=== PATIENT | female | born 1985 | race Asian ===

== ENCOUNTER 2017-01-07 19:39 | Emergency (ER) | payer MEDICARE, OTHER ==
[~2017-01-07] VITALS: Ht 147.3 cm; Wt 108.0 kg
[~2017-01-07 19:39] MED LIST: DIVA500T35 PO; RISP3 PO
[2017-01-07 20:27] LABS: BASOPHILS % (AUTO) 0.4 % (0.0-2.0); EOSINOPHILS % (AUTO) 0 % (1.0-6.0); HEMATOCRIT 41.8 % (36-46); HEMOGLOBIN 14.5 g/dL (12.0-16.0); LYMPHOCYTES # (AUTO) 2.5 K/uL (1.0-4.8); LYMPHOCYTES % (AUTO) 18.1 % (22.0-44.0); MEAN CORPUSCULAR HGB CONC 34.7 G/dL (31.0-37.0); MEAN CORPUSCULAR VOLUME 98 fL (80-100); MONOCYTES # (AUTO) 0.8 K/uL (0.1-1.0); MONOCYTES % (AUTO) 5.9 % (2.0-9.0); NEUTROPHILS # (AUTO) 10.3 K/uL (1.8-7.7); NEUTROPHILS % (AUTO) 75.6 % (40.0-70.0); PLATELET COUNT (AUTO) 401 K/uL (150-450); RED BLOOD CELL COUNT(AUTO) 4.26 MIL/uL (4.00-5.20); RED CELL DISTRIBUTION WIDTH 13.7 % (11.5-14.5)
[2017-01-07 20:30] LABS: ANION GAP 12 mmol/L (8-16); CALCIUM, TOTAL 9.3 mg/dL (8.8-10.5); CARBON DIOXIDE 24 mmol/L (22-29); CHLORIDE 99 mmol/L (98-107); GLOMERULAR FILTR. RATE CALC > 60 mL/min (>60); GLUCOSE,RANDOM 150 mg/dL (70-110); SODIUM SERUM 135 mmol/L (136-145); UREA NITROGEN, BLOOD 9 mg/dL (7-18)
[2017-01-07 20:37] LABS: ALANINE AMINOTRANSFERASE 36 U/L (12-78); ALBUMIN 3.7 g/dL (3.4-5.0); ALKALINE PHOSPHATASE 51 U/L (46-116); ASPARTATE AMINOTRANSFERASE 23 U/L (15-37); BILIRUBIN,TOTAL 0.4 mg/dL (0.1-1.0); TOTAL PROTEIN, SERUM 8.8 g/dL (6.4-8.2)
[2017-01-07] MEDS ORDERED: LORazepam 2 MG TABLET PO ONE (21:30)
[2017-01-07 22:36] VITALS: BP 115/75
[2017-01-08] MEDS ORDERED: METF500T4 PO (17:02)
[2017-01-08] MEDS ORDERED: LISI-660 PO (17:02)
== END 2017-01-07 22:40 | disposition home or self-care (01) ==
LOC: EMS 19:41
DX: F29 Unspecified psychosis not due to a substance or known physiological condition (principal)
CPT/HCPCS: 36415; 80053; 84703; 85025; 99284; G0480

== ENCOUNTER 2017-01-08 16:50 | Inpatient (IN) | payer MEDICARE, MEDICAID ==
[~2017-01-08] VITALS: Ht 144.8 cm; Wt 101.6 kg
[2017-01-08] MEDS ORDERED: METF500T4 PO (17:02)
[2017-01-08] MEDS ORDERED: LISI-660 PO (17:02)
[2017-01-08 17:07] LABS: GLUCOSE,POINT OF CARE 118 MG/DL (70-110)
[2017-01-08 18:39] LABS: ANION GAP 8 mmol/L (8-16); CALCIUM, TOTAL 8.9 mg/dL (8.8-10.5); CARBON DIOXIDE 25 mmol/L (22-29); CHLORIDE 99 mmol/L (98-107); CREATININE 0.75 mg/dL (0.60-1.30); GLOMERULAR FILTR. RATE CALC > 60 mL/min (>60); POTASSIUM 3.8 mmol/L (3.5-5.1); SODIUM SERUM 132 mmol/L (136-145); UREA NITROGEN, BLOOD 7 mg/dL (7-18)
[2017-01-08 18:41] LABS: BASOPHILS % (AUTO) 0.4 % (0.0-2.0); EOSINOPHILS % (AUTO) 0.2 % (1.0-6.0); HEMATOCRIT 39.9 % (36-46); HEMOGLOBIN 13.7 g/dL (12.0-16.0); LYMPHOCYTES # (AUTO) 2.7 K/uL (1.0-4.8); LYMPHOCYTES % (AUTO) 23.4 % (22.0-44.0); MEAN CORPUSCULAR HEMOGLOBIN 33.6 pg (26.0-34.0); MEAN CORPUSCULAR HGB CONC 34.4 G/dL (31.0-37.0); MEAN CORPUSCULAR VOLUME 98 fL (80-100); MONOCYTES # (AUTO) 0.7 K/uL (0.1-1.0); MONOCYTES % (AUTO) 5.9 % (2.0-9.0); NEUTROPHILS # (AUTO) 8.2 K/uL (1.8-7.7); NEUTROPHILS % (AUTO) 70.1 % (40.0-70.0); PLATELET COUNT (AUTO) 344 K/uL (150-450); RED BLOOD CELL COUNT(AUTO) 4.08 MIL/uL (4.00-5.20); RED CELL DISTRIBUTION WIDTH 13.6 % (11.5-14.5); WHITE BLOOD COUNT (AUTO) 11.7 K/uL (4.5-11.0)
[2017-01-08 18:45] LABS: ALANINE AMINOTRANSFERASE 34 U/L (12-78); ALBUMIN 3.5 g/dL (3.4-5.0); ASPARTATE AMINOTRANSFERASE 24 U/L (15-37); BILIRUBIN,TOTAL 0.4 mg/dL (0.1-1.0); TOTAL PROTEIN, SERUM 7.6 g/dL (6.4-8.2)
[2017-01-09] MEDS ORDERED: INFLUENZA VIRUS VACCINE QVS 2017-18 (3YR+)/PF 60 MCG/0.5 ML SYRINGE IM ONE (02:15)
[2017-01-09 05:29] VITALS: BP 126/67
[2017-01-09 08:15] VITALS: BP 121/70
[2017-01-09] MEDS: DIVALPROEX SODIUM 500 MG ER TABLET PO SCH ×2 (08:59→20:40)
[2017-01-09] MEDS: RisperiDONE 2 MG TABLET PO SCH ×2 (09:02→20:40)
[2017-01-09 16:09] VITALS: BP 107/70
[2017-01-09] MEDS ORDERED: IBUPROFEN 400 MG TABLET PO PRN (20:00)
[2017-01-09] MEDS ORDERED: ACETAMINOPHEN 325 MG TABLET PO PRN (20:00)
[2017-01-10 06:54] VITALS: BP 120/65
[2017-01-10] MEDS: MetFORMIN HCL 500 MG TABLET PO SCH ×2 (07:07→16:50)
[2017-01-10 07:27] LABS: GLUCOSE,POINT OF CARE 132 MG/DL (70-110)
[2017-01-10] MEDS: RisperiDONE 2 MG TABLET PO SCH ×2 (08:03→20:04)
[2017-01-10] MEDS: LISINOPRIL 10 MG TABLET PO SCH (08:03)
[2017-01-10] MEDS: DIVALPROEX SODIUM 500 MG ER TABLET PO SCH ×2 (08:03→20:04)
[2017-01-10 08:05] LABS: HEMOGLOBIN A1C 6.1 % (4.5-6.2)
[2017-01-10] MEDS: BACITRACIN 28.4 GM OINTMENT TP SCH ×2 (08:13→16:50)
[2017-01-10 08:50] VITALS: BP 124/88
[2017-01-10 09:29] LABS: CHOL/HDL RATIO 3.3 (3.9-5.7); THYROID STIMULATING HORMONE 3.51 uIU/mL (0.36-3.74)
[2017-01-10 16:00] VITALS: BP 124/71
[2017-01-11 00:22] VITALS: BP 136/82
[2017-01-11] MEDS: MetFORMIN HCL 500 MG TABLET PO SCH ×2 (06:47→16:24)
[2017-01-11 07:33] LABS: ANION GAP 10 mmol/L (8-16); CALCIUM, TOTAL 8.8 mg/dL (8.8-10.5); CARBON DIOXIDE 27 mmol/L (22-29); CHLORIDE 100 mmol/L (98-107); CREATININE 0.62 mg/dL (0.60-1.30); GLOMERULAR FILTR. RATE CALC > 60 mL/min (>60); POTASSIUM 4.3 mmol/L (3.5-5.1); SODIUM SERUM 137 mmol/L (136-145); UREA NITROGEN, BLOOD 9 mg/dL (7-18)
[2017-01-11] MEDS: RisperiDONE 2 MG TABLET PO SCH ×2 (08:30→20:01)
[2017-01-11] MEDS: LISINOPRIL 10 MG TABLET PO SCH (08:30)
[2017-01-11] MEDS: DIVALPROEX SODIUM 500 MG ER TABLET PO SCH ×2 (08:30→20:01)
[2017-01-11] MEDS: BACITRACIN 28.4 GM OINTMENT TP SCH ×2 (08:30→16:24)
[2017-01-11 09:28] VITALS: BP 122/80
[2017-01-11] MEDS ORDERED: ERYTHROMYCIN 0.5% 3.5 GM TUBE OPHTHALMIC OINTMENT TP SCH (09:30)
[2017-01-11 19:17] VITALS: BP 128/67
[2017-01-11] MEDS: LORazepam 2 MG TABLET PO PRN (19:53)
[2017-01-11] MEDS: HALOPERIDOL 5 MG TABLET PO PRN (21:06)
[2017-01-12] MEDS: MetFORMIN HCL 500 MG TABLET PO SCH ×2 (07:05→17:40)
[2017-01-12 08:46] VITALS: BP 159/76
[2017-01-12] MEDS: DIVALPROEX SODIUM 500 MG ER TABLET PO SCH ×2 (08:54→20:39)
[2017-01-12] MEDS: ERYTHROMYCIN 0.5% 3.5 GM TUBE OPHTHALMIC OINTMENT OS SCH (08:54)
[2017-01-12] MEDS: LISINOPRIL 10 MG TABLET PO SCH (08:54)
[2017-01-12] MEDS: RisperiDONE 2 MG TABLET PO SCH ×2 (08:54→20:39)
[2017-01-12] MEDS: BACITRACIN 28.4 GM OINTMENT TP SCH ×2 (08:54→17:07)
[2017-01-12] MEDS ORDERED: ERYTHROMYCIN 0.5% 3.5 GM TUBE OPHTHALMIC OINTMENT OD SCH (09:00)
[2017-01-12 16:22] VITALS: BP 121/62
[2017-01-12] MEDS: HALOPERIDOL 5 MG TABLET PO PRN (17:08)
[2017-01-12] MEDS: LORazepam 2 MG TABLET PO PRN (17:08)
[2017-01-13] MEDS: MetFORMIN HCL 500 MG TABLET PO SCH ×2 (06:41→16:50)
[2017-01-13 08:19] VITALS: BP_SYST 112; BP_SYST 129; BP_DIAS 71; BP_DIAS 89
[2017-01-13] MEDS: ERYTHROMYCIN 0.5% 3.5 GM TUBE OPHTHALMIC OINTMENT OS SCH (08:38)
[2017-01-13] MEDS: DIVALPROEX SODIUM 500 MG ER TABLET PO SCH ×2 (08:38→21:26)
[2017-01-13] MEDS: BACITRACIN 28.4 GM OINTMENT TP SCH ×2 (08:38→16:50)
[2017-01-13] MEDS: RisperiDONE 2 MG TABLET PO SCH ×2 (08:38→21:26)
[2017-01-13] MEDS: LISINOPRIL 10 MG TABLET PO SCH (08:38)
[2017-01-13 16:29] VITALS: BP 122/70
[2017-01-13] MEDS: LORazepam 2 MG TABLET PO PRN (16:50)
[2017-01-13] MEDS: HALOPERIDOL 5 MG TABLET PO PRN (16:50)
[2017-01-14 06:18] VITALS: BP 120/61
[2017-01-14] MEDS: MetFORMIN HCL 500 MG TABLET PO SCH ×2 (06:31→16:39)
[2017-01-14] MEDS: DIVALPROEX SODIUM 500 MG ER TABLET PO SCH ×2 (08:07→20:22)
[2017-01-14] MEDS: RisperiDONE 2 MG TABLET PO SCH ×2 (08:07→20:22)
[2017-01-14] MEDS: LISINOPRIL 10 MG TABLET PO SCH (08:07)
[2017-01-14] MEDS: ERYTHROMYCIN 0.5% 3.5 GM TUBE OPHTHALMIC OINTMENT OS SCH ×2 (08:16→09:22)
[2017-01-14 08:18] VITALS: BP 116/63
[2017-01-14] MEDS: BACITRACIN 28.4 GM OINTMENT TP SCH ×2 (09:21→16:21)
[2017-01-14] MEDS: LORazepam 2 MG TABLET PO PRN ×2 (16:21→20:22)
[2017-01-14 16:27] VITALS: BP 113/68
[2017-01-14] MEDS: HALOPERIDOL 5 MG TABLET PO PRN (16:39)
[2017-01-15 06:57] VITALS: BP 110/72
[2017-01-15] MEDS: MetFORMIN HCL 500 MG TABLET PO SCH ×2 (07:06→16:19)
[2017-01-15] MEDS: BACITRACIN 28.4 GM OINTMENT TP SCH ×2 (08:12→16:19)
[2017-01-15] MEDS: DIVALPROEX SODIUM 500 MG ER TABLET PO SCH ×2 (08:12→20:12)
[2017-01-15] MEDS: RisperiDONE 2 MG TABLET PO SCH ×2 (08:12→20:12)
[2017-01-15] MEDS: LISINOPRIL 10 MG TABLET PO SCH (08:13)
[2017-01-15] MEDS: ERYTHROMYCIN 0.5% 3.5 GM TUBE OPHTHALMIC OINTMENT OS SCH (08:16)
[2017-01-15 16:15] VITALS: BP 110/66
[2017-01-16 05:59] VITALS: BP 115/72
[2017-01-16] MEDS: MetFORMIN HCL 500 MG TABLET PO SCH ×2 (06:37→16:21)
[2017-01-16] MEDS: RisperiDONE 2 MG TABLET PO SCH ×2 (08:15→20:09)
[2017-01-16] MEDS: DIVALPROEX SODIUM 500 MG ER TABLET PO SCH ×2 (08:15→20:09)
[2017-01-16] MEDS: LISINOPRIL 10 MG TABLET PO SCH (08:16)
[2017-01-16] MEDS: BACITRACIN 28.4 GM OINTMENT TP SCH ×2 (08:21→16:21)
[2017-01-16] MEDS: ERYTHROMYCIN 0.5% 3.5 GM TUBE OPHTHALMIC OINTMENT OS SCH (08:21)
[2017-01-16 09:09] VITALS: BP 137/75
[2017-01-16 16:07] VITALS: BP 100/61
[2017-01-17 00:12] VITALS: BP 140/76
[2017-01-17] MEDS: MetFORMIN HCL 500 MG TABLET PO SCH ×2 (06:40→16:34)
[2017-01-17 08:32] VITALS: BP 134/84
[2017-01-17] MEDS: RisperiDONE 2 MG TABLET PO SCH ×2 (08:43→20:38)
[2017-01-17] MEDS: DIVALPROEX SODIUM 500 MG ER TABLET PO SCH ×2 (08:43→20:38)
[2017-01-17] MEDS: LISINOPRIL 10 MG TABLET PO SCH (08:43)
[2017-01-17] MEDS: BACITRACIN 28.4 GM OINTMENT TP SCH ×2 (08:44→16:34)
[2017-01-17] MEDS: ERYTHROMYCIN 0.5% 3.5 GM TUBE OPHTHALMIC OINTMENT OS SCH (08:44)
[2017-01-17 16:13] VITALS: BP 101/77
[2017-01-18] MEDS: MetFORMIN HCL 500 MG TABLET PO SCH ×2 (06:33→16:58)
[2017-01-18 07:02] VITALS: BP 126/70
[2017-01-18 08:27] VITALS: BP 125/81
[2017-01-18] MEDS: RisperiDONE 2 MG TABLET PO SCH ×2 (08:28→20:49)
[2017-01-18] MEDS: DIVALPROEX SODIUM 500 MG ER TABLET PO SCH ×2 (08:28→20:49)
[2017-01-18] MEDS: BACITRACIN 28.4 GM OINTMENT TP SCH ×2 (08:28→16:58)
[2017-01-18] MEDS: LISINOPRIL 10 MG TABLET PO SCH (08:28)
[2017-01-18] MEDS: ERYTHROMYCIN 0.5% 3.5 GM TUBE OPHTHALMIC OINTMENT OS SCH (08:31)
[2017-01-18 16:07] VITALS: BP 106/61
[2017-01-19 03:46] VITALS: BP 122/74
[2017-01-19] MEDS: MetFORMIN HCL 500 MG TABLET PO SCH ×2 (06:39→16:13)
[2017-01-19 07:50] LABS: BASOPHILS % (AUTO) 0.3 % (0.0-2.0); EOSINOPHILS % (AUTO) 0.5 % (1.0-6.0); HEMATOCRIT 38.3 % (36-46); LYMPHOCYTES # (AUTO) 1.9 K/uL (1.0-4.8); MEAN CORPUSCULAR HEMOGLOBIN 34.1 pg (26.0-34.0); MEAN CORPUSCULAR VOLUME 100 fL (80-100); MONOCYTES # (AUTO) 0.6 K/uL (0.1-1.0); MONOCYTES % (AUTO) 7.2 % (2.0-9.0); NEUTROPHILS # (AUTO) 5.2 K/uL (1.8-7.7); PLATELET COUNT (AUTO) 325 K/uL (150-450); RED BLOOD CELL COUNT(AUTO) 3.82 MIL/uL (4.00-5.20); RED CELL DISTRIBUTION WIDTH 14.2 % (11.5-14.5); WHITE BLOOD COUNT (AUTO) 7.8 K/uL (4.5-11.0)
[2017-01-19 07:57] LABS: RBC MORPHOLOGY COMMENT ABNORMAL RBC MORPH
[2017-01-19 08:06] VITALS: BP 109/54
[2017-01-19] MEDS: ERYTHROMYCIN 0.5% 3.5 GM TUBE OPHTHALMIC OINTMENT OS SCH (09:00)
[2017-01-19] MEDS: RisperiDONE 2 MG TABLET PO SCH ×2 (09:10→20:08)
[2017-01-19] MEDS: LISINOPRIL 10 MG TABLET PO SCH (09:10)
[2017-01-19] MEDS: BACITRACIN 28.4 GM OINTMENT TP SCH ×2 (09:10→16:13)
[2017-01-19] MEDS: DIVALPROEX SODIUM 500 MG ER TABLET PO SCH ×2 (09:10→20:08)
[2017-01-19 16:11] VITALS: BP 129/78
[2017-01-20 05:02] VITALS: BP 126/74
[2017-01-20] MEDS: MetFORMIN HCL 500 MG TABLET PO SCH ×2 (06:22→17:02)
[2017-01-20 08:30] VITALS: BP 108/61
[2017-01-20] MEDS: ERYTHROMYCIN 0.5% 3.5 GM TUBE OPHTHALMIC OINTMENT OS SCH (09:00)
[2017-01-20] MEDS: LISINOPRIL 10 MG TABLET PO SCH (09:27)
[2017-01-20] MEDS: DIVALPROEX SODIUM 500 MG ER TABLET PO SCH ×2 (09:27→20:11)
[2017-01-20] MEDS: RisperiDONE 2 MG TABLET PO SCH ×2 (09:27→20:11)
[2017-01-20 16:09] VITALS: BP 121/69
[2017-01-21 03:07] VITALS: BP 117/63
[2017-01-21] MEDS: LORazepam 2 MG TABLET PO PRN (03:24)
[2017-01-21] MEDS: MetFORMIN HCL 500 MG TABLET PO SCH ×2 (07:06→16:48)
[2017-01-21] MEDS: LISINOPRIL 10 MG TABLET PO SCH (08:12)
[2017-01-21] MEDS: DIVALPROEX SODIUM 500 MG ER TABLET PO SCH ×2 (08:12→20:40)
[2017-01-21] MEDS: ERYTHROMYCIN 0.5% 3.5 GM TUBE OPHTHALMIC OINTMENT OS SCH (08:12)
[2017-01-21] MEDS: RisperiDONE 2 MG TABLET PO SCH ×2 (08:12→20:40)
[2017-01-21 08:40] VITALS: BP 129/62
[2017-01-21 16:36] VITALS: BP 113/64
[2017-01-22 00:55] VITALS: BP 117/68
[2017-01-22] MEDS: MetFORMIN HCL 500 MG TABLET PO SCH (06:56)
[2017-01-22] MEDS: ERYTHROMYCIN 0.5% 3.5 GM TUBE OPHTHALMIC OINTMENT OS SCH (08:40)
[2017-01-22] MEDS: RisperiDONE 2 MG TABLET PO SCH (08:40)
[2017-01-22] MEDS: DIVALPROEX SODIUM 500 MG ER TABLET PO SCH (08:40)
[2017-01-22] MEDS: LISINOPRIL 10 MG TABLET PO SCH (08:40)
[2017-01-22 08:49] VITALS: BP 138/76
[2017-01-22] MEDS ORDERED: DIVA500T52 PO (10:03)
[2017-01-22] MEDS ORDERED: RISP2 PO (10:03)
== END 2017-01-22 11:00 | disposition home or self-care (01) | DRG 885 ==
LOC: EMS 16:52 → B3A 23:57
PROVIDERS: ADMIT Psychiatry & Neurology Child & Adolescent Psychiatry; ATTEND Psychiatry & Neurology Child & Adolescent Psychiatry
PROC: 3E0234Z Introduction of Serum, Toxoid and Vaccine into Muscle, Percutaneous Approach (ICD-10-PCS; principal; 2017-01-09)
DX: F25.1 Schizoaffective disorder, depressive type (principal); F79 Unspecified intellectual disabilities; E87.1 Hypo-osmolality and hyponatremia; E11.9 Type 2 diabetes mellitus without complications; D72.829 Elevated white blood cell count, unspecified; E66.9 Obesity, unspecified; F42.9 Obsessive-compulsive disorder, unspecified; H10.9 Unspecified conjunctivitis; I10 Essential (primary) hypertension; Q90.9 Down syndrome, unspecified; Z79.899 Other long term (current) drug therapy; Z82.49 Family history of ischemic heart disease and other diseases of the circulatory system; Z83.3 Family history of diabetes mellitus; Z91.14 Patient's other noncompliance with medication regimen; Z23 Encounter for immunization
CPT/HCPCS: 82962; 83036; 84443; 90471; 99285; G0480

== ENCOUNTER 2017-02-02 17:52 | Inpatient (IN) | payer MEDICARE, MEDICAID ==
[~2017-02-02] VITALS: Ht 142.2 cm; Wt 110.0 kg
[~2017-02-02 17:52] MED LIST changes: -DIVA500T35 PO; +DIVA500T52 PO; +LISI-660 PO; +METF500T4 PO; +RISP2 PO; -RISP3 PO
[2017-02-02 18:07] LABS: GLUCOSE,POINT OF CARE 98 MG/DL (70-110)
[2017-02-02 19:32] LABS: BASOPHILS # (AUTO) 0.04 K/uL (0.00-0.20); BASOPHILS % (AUTO) 0.4 % (0.0-2.0); EOSINOPHILS # (AUTO) 0.05 K/uL (0.00-0.70); HEMATOCRIT 38.2 % (36-46); HEMOGLOBIN 12.6 g/dL (12.0-16.0); LYMPHOCYTES # (AUTO) 2.7 K/uL (1.0-4.8); LYMPHOCYTES % (AUTO) 26.7 % (22.0-44.0); MEAN CORPUSCULAR HEMOGLOBIN 33.2 pg (26.0-34.0); MEAN CORPUSCULAR HGB CONC 32.9 G/dL (31.0-37.0); MEAN CORPUSCULAR VOLUME 101 fL (80-100); MONOCYTES # (AUTO) 0.7 K/uL (0.1-1.0); NEUTROPHILS # (AUTO) 6.7 K/uL (1.8-7.7); NEUTROPHILS % (AUTO) 65.4 % (40.0-70.0); PLATELET COUNT (AUTO) 337 K/uL (150-450); RED BLOOD CELL COUNT(AUTO) 3.79 MIL/uL (4.00-5.20); RED CELL DISTRIBUTION WIDTH 14.7 % (11.5-14.5)
[2017-02-02 19:42] LABS: ANION GAP 7 mmol/L (8-16); CALCIUM, TOTAL 8.9 mg/dL (8.8-10.5); CARBON DIOXIDE 30 mmol/L (22-29); CHLORIDE 102 mmol/L (98-107); CREATININE 0.75 mg/dL (0.60-1.30); GLOMERULAR FILTR. RATE CALC > 60 mL/min (>60); GLUCOSE,RANDOM 110 mg/dL (70-110); POTASSIUM 4.1 mmol/L (3.5-5.1); SODIUM SERUM 139 mmol/L (136-145); UREA NITROGEN, BLOOD 8 mg/dL (7-18)
[2017-02-02 19:47] LABS: ALANINE AMINOTRANSFERASE 25 U/L (12-78); ALBUMIN 3.1 g/dL (3.4-5.0); ALKALINE PHOSPHATASE 55 U/L (46-116); ASPARTATE AMINOTRANSFERASE 16 U/L (15-37); BILIRUBIN,TOTAL 0.2 mg/dL (0.1-1.0); TOTAL PROTEIN, SERUM 7.5 g/dL (6.4-8.2); VALPROIC ACID 33 mcg/mL (50-100)
[2017-02-02] MEDS ORDERED: LISI-661 PO (20:20)
[2017-02-02] MEDS ORDERED: RisperiDONE 1 MG TABLET PO ONE (20:30)
[2017-02-02] MEDS ORDERED: DIVALPROEX SODIUM 250 MG DR TABLET PO ONE (20:30)
[2017-02-02 21:27] LABS: CHOL/HDL RATIO 3.4 (3.9-5.7); CHOLESTEROL 141 mg/dL (131-200); HDL CHOLESTEROL 42 mg/dL (40-60); LDL CHOL (CALC.) 82 mg/dL (0-130); THYROID STIMULATING HORMONE 5.26 uIU/mL (0.36-3.74); TRIGLYCERIDES 86 mg/dL (15-150)
[2017-02-02 21:42] LABS: GLUCOSE,POINT OF CARE 115 MG/DL (70-110)
[2017-02-03 02:12] VITALS: BP 131/114
[2017-02-03] MEDS ORDERED: PNEUMOCOCCAL VACCINE POLYVALENT 0.5 ML VIAL [PPSV23] IM ONE (04:15)
[2017-02-03] MEDS ORDERED: -PHARMACY VACCINE NOTE- MISC ONE (04:15)
[2017-02-03 06:22] LABS: GLUCOMETER DEV NAME(LOC) 3EI B; GLUCOSE,POINT OF CARE 94 MG/DL (70-110)
[2017-02-03 08:52] VITALS: BP 146/81
[2017-02-03] MEDS: DIVALPROEX SODIUM 500 MG ER TABLET PO SCH ×2 (13:12→20:43)
[2017-02-03] MEDS: RisperiDONE 2 MG TABLET PO SCH ×2 (13:12→20:43)
[2017-02-03] MEDS ORDERED: ACETAMINOPHEN 325 MG TABLET PO PRN (16:30)
[2017-02-03] MEDS ORDERED: IBUPROFEN 400 MG TABLET PO PRN (16:30)
[2017-02-03 16:39] VITALS: BP 119/70
[2017-02-03] MEDS: MetFORMIN HCL 500 MG TABLET PO SCH (17:36)
[2017-02-03 18:00] LABS: FREE T4 (FREE THYROXINE) 0.99 ng/dL (0.76-1.46)
[2017-02-04 06:43] VITALS: BP 111/74
[2017-02-04] MEDS: MetFORMIN HCL 500 MG TABLET PO SCH ×2 (06:57→17:30)
[2017-02-04 08:38] VITALS: BP 110/72
[2017-02-04] MEDS: RisperiDONE 2 MG TABLET PO SCH ×2 (09:51→20:15)
[2017-02-04] MEDS: DIVALPROEX SODIUM 500 MG ER TABLET PO SCH ×2 (09:51→20:15)
[2017-02-04] MEDS: LISINOPRIL 10 MG TABLET PO SCH (09:51)
[2017-02-04 16:41] VITALS: BP 98/53
[2017-02-04 20:13] VITALS: BP 108/64
[2017-02-05 00:05] VITALS: BP 107/72
[2017-02-05] MEDS: ZOLPIDEM TARTRATE 10 MG TABLET PO PRN (00:39)
[2017-02-05] MEDS: HALOPERIDOL 5 MG TABLET PO PRN (01:06)
[2017-02-05] MEDS: LORazepam 2 MG TABLET PO PRN (01:06)
[2017-02-05] MEDS: MetFORMIN HCL 500 MG TABLET PO SCH ×2 (06:45→17:51)
[2017-02-05 08:51] VITALS: BP 119/76
[2017-02-05] MEDS: DIVALPROEX SODIUM 500 MG ER TABLET PO SCH ×2 (09:29→20:43)
[2017-02-05] MEDS: LISINOPRIL 10 MG TABLET PO SCH (09:29)
[2017-02-05] MEDS: RisperiDONE 2 MG TABLET PO SCH ×2 (09:30→20:43)
[2017-02-05 17:00] VITALS: BP 110/71
[2017-02-06] MEDS: LORazepam 2 MG TABLET PO PRN (00:29)
[2017-02-06] MEDS: HALOPERIDOL 5 MG TABLET PO PRN (00:38)
[2017-02-06] MEDS: MetFORMIN HCL 500 MG TABLET PO SCH ×2 (06:52→17:07)
[2017-02-06 06:59] VITALS: BP 100/67
[2017-02-06 08:15] VITALS: BP 100/58
[2017-02-06] MEDS: RisperiDONE 2 MG TABLET PO SCH ×2 (12:06→20:56)
[2017-02-06] MEDS: LISINOPRIL 10 MG TABLET PO SCH (12:07)
[2017-02-06] MEDS: DIVALPROEX SODIUM 500 MG ER TABLET PO SCH ×2 (12:07→20:56)
[2017-02-06 17:00] VITALS: BP 112/68
[2017-02-07 05:18] VITALS: BP 114/69
[2017-02-07] MEDS: MetFORMIN HCL 500 MG TABLET PO SCH ×2 (06:49→16:48)
[2017-02-07] MEDS: LISINOPRIL 10 MG TABLET PO SCH (09:52)
[2017-02-07] MEDS: DIVALPROEX SODIUM 500 MG ER TABLET PO SCH ×2 (09:52→20:14)
[2017-02-07] MEDS: RisperiDONE 2 MG TABLET PO SCH ×2 (09:52→20:14)
[2017-02-07 12:04] VITALS: BP 117/66
[2017-02-07] MEDS: LORazepam 2 MG TABLET PO PRN (16:47)
[2017-02-07] MEDS: HALOPERIDOL 5 MG TABLET PO PRN (16:47)
[2017-02-07 17:00] VITALS: BP 134/83
[2017-02-08 01:27] VITALS: BP 125/80
[2017-02-08] MEDS: MetFORMIN HCL 500 MG TABLET PO SCH ×2 (07:05→16:52)
[2017-02-08 08:18] VITALS: BP 125/76
[2017-02-08] MEDS: RisperiDONE 2 MG TABLET PO SCH ×2 (10:24→20:38)
[2017-02-08] MEDS: LISINOPRIL 10 MG TABLET PO SCH (10:24)
[2017-02-08] MEDS: DIVALPROEX SODIUM 500 MG ER TABLET PO SCH ×2 (10:24→20:38)
[2017-02-08 17:47] VITALS: BP 122/77
[2017-02-09] MEDS: HALOPERIDOL 5 MG TABLET PO PRN (00:16)
[2017-02-09 02:23] VITALS: BP 138/75
[2017-02-09] MEDS: MetFORMIN HCL 500 MG TABLET PO SCH ×2 (06:39→17:36)
[2017-02-09 09:09] VITALS: BP 120/80
[2017-02-09] MEDS: LISINOPRIL 10 MG TABLET PO SCH (09:59)
[2017-02-09] MEDS: RisperiDONE 2 MG TABLET PO SCH ×2 (09:59→20:16)
[2017-02-09] MEDS: DIVALPROEX SODIUM 500 MG ER TABLET PO SCH ×2 (09:59→20:16)
[2017-02-09] MEDS: BACITRACIN 28.4 GM OINTMENT TP SCH ×2 (10:58→17:37)
[2017-02-09 18:58] VITALS: BP 109/55
[2017-02-10 04:27] VITALS: BP 97/57
[2017-02-10] MEDS: MetFORMIN HCL 500 MG TABLET PO SCH ×2 (07:09→17:19)
[2017-02-10] MEDS: BACITRACIN 28.4 GM OINTMENT TP SCH ×2 (09:00→17:19)
[2017-02-10] MEDS: SULFAMETHOX/TRIMETH DS 800-160 MG/TABLET PO SCH ×2 (09:29→17:19)
[2017-02-10] MEDS: DIVALPROEX SODIUM 500 MG ER TABLET PO SCH ×2 (09:29→20:25)
[2017-02-10] MEDS: LISINOPRIL 10 MG TABLET PO SCH (09:29)
[2017-02-10] MEDS: RisperiDONE 3 MG TABLET PO SCH ×2 (09:31→20:25)
[2017-02-10 10:49] VITALS: BP 125/75
[2017-02-10 17:00] VITALS: BP 120/70
[2017-02-11] MEDS: ZOLPIDEM TARTRATE 10 MG TABLET PO PRN (01:22)
[2017-02-11] MEDS: HALOPERIDOL 5 MG TABLET PO PRN ×2 (01:22→21:45)
[2017-02-11] MEDS: MetFORMIN HCL 500 MG TABLET PO SCH ×2 (07:05→17:28)
[2017-02-11 08:00] VITALS: BP 132/84
[2017-02-11] MEDS: SULFAMETHOX/TRIMETH DS 800-160 MG/TABLET PO SCH ×2 (09:57→17:29)
[2017-02-11] MEDS: RisperiDONE 3 MG TABLET PO SCH ×2 (09:57→21:04)
[2017-02-11] MEDS: DIVALPROEX SODIUM 500 MG ER TABLET PO SCH ×2 (09:57→21:04)
[2017-02-11] MEDS: LISINOPRIL 10 MG TABLET PO SCH (09:57)
[2017-02-11] MEDS: BACITRACIN 28.4 GM OINTMENT TP SCH ×2 (09:58→17:28)
[2017-02-11 16:46] VITALS: BP 114/74
[2017-02-11] MEDS: LORazepam 2 MG TABLET PO PRN (21:45)
[2017-02-12] MEDS: MetFORMIN HCL 500 MG TABLET PO SCH ×2 (06:44→16:36)
[2017-02-12 08:00] VITALS: BP 116/65
[2017-02-12] MEDS: RisperiDONE 3 MG TABLET PO SCH ×2 (08:26→20:36)
[2017-02-12] MEDS: LISINOPRIL 10 MG TABLET PO SCH (08:26)
[2017-02-12] MEDS: SULFAMETHOX/TRIMETH DS 800-160 MG/TABLET PO SCH ×2 (08:26→16:36)
[2017-02-12] MEDS: DIVALPROEX SODIUM 500 MG ER TABLET PO SCH ×2 (08:26→20:36)
[2017-02-12] MEDS: BACITRACIN 28.4 GM OINTMENT TP SCH ×2 (09:57→16:37)
[2017-02-12 20:24] VITALS: BP 112/71
[2017-02-13 00:15] VITALS: BP 116/63
[2017-02-13] MEDS: HALOPERIDOL 5 MG TABLET PO PRN (00:17)
[2017-02-13] MEDS: MetFORMIN HCL 500 MG TABLET PO SCH ×2 (07:02→16:37)
[2017-02-13 08:00] VITALS: BP 125/65
[2017-02-13] MEDS ORDERED: SULF1TAB42 PO (09:26)
[2017-02-13] MEDS: SULFAMETHOX/TRIMETH DS 800-160 MG/TABLET PO SCH ×2 (09:46→16:36)
[2017-02-13] MEDS: RisperiDONE 3 MG TABLET PO SCH ×2 (09:46→20:39)
[2017-02-13] MEDS: DIVALPROEX SODIUM 500 MG ER TABLET PO SCH ×2 (09:46→20:38)
[2017-02-13] MEDS: LISINOPRIL 10 MG TABLET PO SCH (09:46)
[2017-02-13] MEDS: BACITRACIN 28.4 GM OINTMENT TP SCH ×2 (10:36→16:37)
[2017-02-13 17:00] VITALS: BP 118/68
[2017-02-14 06:31] VITALS: BP 130/81
[2017-02-14] MEDS: MetFORMIN HCL 500 MG TABLET PO SCH ×2 (06:40→17:40)
[2017-02-14] MEDS: BACITRACIN 28.4 GM OINTMENT TP SCH ×2 (09:00→17:00)
[2017-02-14] MEDS: DIVALPROEX SODIUM 500 MG ER TABLET PO SCH ×2 (10:19→20:38)
[2017-02-14] MEDS: SULFAMETHOX/TRIMETH DS 800-160 MG/TABLET PO SCH ×2 (10:19→17:40)
[2017-02-14] MEDS: RisperiDONE 3 MG TABLET PO SCH ×2 (10:20→20:38)
[2017-02-14] MEDS: LISINOPRIL 10 MG TABLET PO SCH (10:20)
[2017-02-14 10:27] VITALS: BP 123/72
[2017-02-14 16:43] VITALS: BP 103/64
[2017-02-14] MEDS: HALOPERIDOL 5 MG TABLET PO PRN (17:40)
[2017-02-15 03:16] VITALS: BP 112/65
[2017-02-15] MEDS: MetFORMIN HCL 500 MG TABLET PO SCH ×2 (06:32→17:34)
[2017-02-15 08:15] VITALS: BP 133/91
[2017-02-15] MEDS: SULFAMETHOX/TRIMETH DS 800-160 MG/TABLET PO SCH ×2 (08:30→17:34)
[2017-02-15] MEDS: DIVALPROEX SODIUM 500 MG ER TABLET PO SCH ×2 (08:30→20:34)
[2017-02-15] MEDS: BACITRACIN 28.4 GM OINTMENT TP SCH ×2 (08:30→17:34)
[2017-02-15] MEDS: RisperiDONE 3 MG TABLET PO SCH ×2 (08:31→20:34)
[2017-02-15] MEDS: LISINOPRIL 10 MG TABLET PO SCH (08:31)
[2017-02-15 19:25] VITALS: BP 114/63
[2017-02-16 01:13] VITALS: BP 131/63
[2017-02-16] MEDS: MetFORMIN HCL 500 MG TABLET PO SCH ×2 (07:04→17:17)
[2017-02-16 08:38] VITALS: BP 123/65
[2017-02-16] MEDS: BACITRACIN 28.4 GM OINTMENT TP SCH ×2 (09:00→17:17)
[2017-02-16] MEDS: SULFAMETHOX/TRIMETH DS 800-160 MG/TABLET PO SCH ×2 (10:42→17:17)
[2017-02-16] MEDS: RisperiDONE 3 MG TABLET PO SCH ×2 (10:42→20:48)
[2017-02-16] MEDS: LISINOPRIL 10 MG TABLET PO SCH (10:42)
[2017-02-16] MEDS: DIVALPROEX SODIUM 500 MG ER TABLET PO SCH ×2 (10:42→20:48)
[2017-02-16 16:15] VITALS: BP 112/62
[2017-02-17] MEDS: MetFORMIN HCL 500 MG TABLET PO SCH ×2 (06:53→17:10)
[2017-02-17] MEDS: SULFAMETHOX/TRIMETH DS 800-160 MG/TABLET PO SCH ×2 (08:20→17:10)
[2017-02-17] MEDS: DIVALPROEX SODIUM 500 MG ER TABLET PO SCH ×2 (08:20→21:26)
[2017-02-17] MEDS: RisperiDONE 3 MG TABLET PO SCH ×2 (08:20→21:26)
[2017-02-17] MEDS: LISINOPRIL 10 MG TABLET PO SCH (08:20)
[2017-02-17] MEDS: BACITRACIN 28.4 GM OINTMENT TP SCH ×2 (08:22→17:10)
[2017-02-17 08:43] VITALS: BP 137/69
[2017-02-17 16:31] VITALS: BP 131/77
[2017-02-18 03:06] VITALS: BP 114/67
[2017-02-18] MEDS: MetFORMIN HCL 500 MG TABLET PO SCH ×2 (07:00→16:52)
[2017-02-18 08:30] VITALS: BP 109/74
[2017-02-18] MEDS: SULFAMETHOX/TRIMETH DS 800-160 MG/TABLET PO SCH ×2 (09:48→16:51)
[2017-02-18] MEDS: LISINOPRIL 10 MG TABLET PO SCH (09:48)
[2017-02-18] MEDS: DIVALPROEX SODIUM 500 MG ER TABLET PO SCH ×2 (09:48→20:10)
[2017-02-18] MEDS: RisperiDONE 3 MG TABLET PO SCH ×2 (09:48→20:10)
[2017-02-18] MEDS: BACITRACIN 28.4 GM OINTMENT TP SCH ×2 (11:16→16:52)
[2017-02-18 17:06] VITALS: BP 124/86
[2017-02-19 05:45] VITALS: BP 108/64
[2017-02-19] MEDS: MetFORMIN HCL 500 MG TABLET PO SCH ×2 (06:31→16:54)
[2017-02-19] MEDS: SULFAMETHOX/TRIMETH DS 800-160 MG/TABLET PO SCH ×2 (10:25→16:55)
[2017-02-19] MEDS: RisperiDONE 3 MG TABLET PO SCH ×2 (10:25→21:07)
[2017-02-19] MEDS: DIVALPROEX SODIUM 500 MG ER TABLET PO SCH ×2 (10:25→21:06)
[2017-02-19] MEDS: LISINOPRIL 10 MG TABLET PO SCH (10:25)
[2017-02-19 12:16] VITALS: BP 163/83
[2017-02-19 16:47] VITALS: BP 145/96
[2017-02-20 01:41] VITALS: BP 99/60
[2017-02-20] MEDS: MetFORMIN HCL 500 MG TABLET PO SCH ×2 (07:03→17:22)
[2017-02-20 08:15] VITALS: BP 111/77
[2017-02-20] MEDS: DIVALPROEX SODIUM 500 MG ER TABLET PO SCH ×2 (09:43→20:26)
[2017-02-20] MEDS: LISINOPRIL 10 MG TABLET PO SCH (09:43)
[2017-02-20] MEDS: RisperiDONE 3 MG TABLET PO SCH ×2 (09:43→20:26)
[2017-02-20 10:18] LABS: GLUCOMETER DEV NAME(LOC) 3EI B; GLUCOSE,POINT OF CARE 101 MG/DL (70-110)
[2017-02-20 16:57] VITALS: BP 123/67
[2017-02-21 01:47] VITALS: BP 139/84
[2017-02-21] MEDS: MetFORMIN HCL 500 MG TABLET PO SCH ×2 (06:39→17:00)
[2017-02-21 08:00] VITALS: BP 135/72
[2017-02-21] MEDS: DIVALPROEX SODIUM 500 MG ER TABLET PO SCH ×2 (10:11→20:11)
[2017-02-21] MEDS: RisperiDONE 3 MG TABLET PO SCH ×2 (10:12→20:11)
[2017-02-21] MEDS: LISINOPRIL 10 MG TABLET PO SCH (10:12)
[2017-02-21 17:05] VITALS: BP 106/64
[2017-02-22 03:21] VITALS: BP 132/83
[2017-02-22] MEDS: MetFORMIN HCL 500 MG TABLET PO SCH ×2 (07:03→16:53)
[2017-02-22 08:00] VITALS: BP 115/67
[2017-02-22] MEDS: RisperiDONE 3 MG TABLET PO SCH ×2 (10:00→21:02)
[2017-02-22] MEDS: LISINOPRIL 10 MG TABLET PO SCH (10:00)
[2017-02-22] MEDS: DIVALPROEX SODIUM 500 MG ER TABLET PO SCH ×2 (10:00→21:00)
[2017-02-22 16:26] VITALS: BP 119/62
[2017-02-23] MEDS: MetFORMIN HCL 500 MG TABLET PO SCH ×2 (06:41→16:30)
[2017-02-23 08:44] VITALS: BP 109/67
[2017-02-23] MEDS: LISINOPRIL 10 MG TABLET PO SCH (09:58)
[2017-02-23] MEDS: DIVALPROEX SODIUM 500 MG ER TABLET PO SCH ×2 (09:58→20:23)
[2017-02-23] MEDS: RisperiDONE 3 MG TABLET PO SCH ×2 (09:58→20:23)
[2017-02-23 17:17] VITALS: BP 111/76
[2017-02-24] MEDS: HALOPERIDOL 5 MG TABLET PO PRN (01:29)
[2017-02-24 01:38] VITALS: BP 123/69
[2017-02-24] MEDS: MetFORMIN HCL 500 MG TABLET PO SCH ×2 (06:55→17:33)
[2017-02-24] MEDS: RisperiDONE 3 MG TABLET PO SCH ×2 (09:50→20:43)
[2017-02-24] MEDS: DIVALPROEX SODIUM 500 MG ER TABLET PO SCH ×2 (09:50→20:43)
[2017-02-24] MEDS: LISINOPRIL 10 MG TABLET PO SCH (09:50)
[2017-02-24 09:56] VITALS: BP 122/94
[2017-02-24 19:42] VITALS: BP 124/75
[2017-02-25] MEDS: MetFORMIN HCL 500 MG TABLET PO SCH ×2 (06:52→16:37)
[2017-02-25 08:00] VITALS: BP 120/68
[2017-02-25] MEDS: RisperiDONE 3 MG TABLET PO SCH ×2 (09:48→21:06)
[2017-02-25] MEDS: LISINOPRIL 10 MG TABLET PO SCH (09:48)
[2017-02-25] MEDS: DIVALPROEX SODIUM 500 MG ER TABLET PO SCH ×2 (09:48→21:06)
[2017-02-25 16:45] VITALS: BP 133/74
[2017-02-26 00:20] VITALS: BP 112/78
[2017-02-26] MEDS: HALOPERIDOL 5 MG TABLET PO PRN ×2 (00:21→12:52)
[2017-02-26] MEDS: MetFORMIN HCL 500 MG TABLET PO SCH ×2 (07:08→16:43)
[2017-02-26] MEDS: DIVALPROEX SODIUM 500 MG ER TABLET PO SCH ×2 (09:05→20:08)
[2017-02-26] MEDS: LISINOPRIL 10 MG TABLET PO SCH (09:05)
[2017-02-26] MEDS: RisperiDONE 3 MG TABLET PO SCH ×2 (09:05→20:08)
[2017-02-26 09:59] VITALS: BP 124/68
[2017-02-26 20:05] VITALS: BP 120/70
[2017-02-27 01:00] VITALS: BP 136/77
[2017-02-27] MEDS: MetFORMIN HCL 500 MG TABLET PO SCH ×2 (06:46→16:53)
[2017-02-27 08:00] VITALS: BP 155/100
[2017-02-27] MEDS: DIVALPROEX SODIUM 500 MG ER TABLET PO SCH ×2 (08:36→20:27)
[2017-02-27] MEDS: RisperiDONE 3 MG TABLET PO SCH ×2 (08:36→20:27)
[2017-02-27] MEDS: LISINOPRIL 10 MG TABLET PO SCH (08:36)
[2017-02-27 12:43] VITALS: BP 106/63
[2017-02-27 18:00] VITALS: BP 126/75
[2017-02-28 04:57] VITALS: BP 122/69
[2017-02-28] MEDS: MetFORMIN HCL 500 MG TABLET PO SCH ×2 (06:48→17:42)
[2017-02-28] MEDS: LISINOPRIL 10 MG TABLET PO SCH (09:26)
[2017-02-28] MEDS: DIVALPROEX SODIUM 500 MG ER TABLET PO SCH ×2 (09:26→21:00)
[2017-02-28] MEDS: RisperiDONE 3 MG TABLET PO SCH ×2 (09:26→21:00)
[2017-02-28 10:06] VITALS: BP 123/56
[2017-02-28 17:00] VITALS: BP 128/64
[2017-03-01 03:53] VITALS: BP 119/66
[2017-03-01] MEDS: MetFORMIN HCL 500 MG TABLET PO SCH ×2 (07:05→18:05)
[2017-03-01] MEDS: RisperiDONE 3 MG TABLET PO SCH ×2 (08:36→20:08)
[2017-03-01] MEDS: DIVALPROEX SODIUM 500 MG ER TABLET PO SCH ×2 (08:36→20:08)
[2017-03-01] MEDS: LISINOPRIL 10 MG TABLET PO SCH (09:00)
[2017-03-01 11:02] VITALS: BP 96/70
[2017-03-01 16:15] VITALS: BP 114/83
[2017-03-02 01:30] VITALS: BP 104/76
[2017-03-02] MEDS: MetFORMIN HCL 500 MG TABLET PO SCH ×2 (06:35→18:00)
[2017-03-02 08:00] VITALS: BP 137/77
[2017-03-02] MEDS: DIVALPROEX SODIUM 500 MG ER TABLET PO SCH ×2 (08:46→21:32)
[2017-03-02] MEDS: RisperiDONE 3 MG TABLET PO SCH ×2 (08:46→21:33)
[2017-03-02] MEDS: LISINOPRIL 10 MG TABLET PO SCH (09:05)
[2017-03-02 19:04] VITALS: BP 107/59
[2017-03-03 02:00] VITALS: BP 111/76
[2017-03-03] MEDS: MetFORMIN HCL 500 MG TABLET PO SCH ×2 (06:35→17:03)
[2017-03-03 08:00] VITALS: BP 119/59
[2017-03-03] MEDS: RisperiDONE 3 MG TABLET PO SCH ×2 (08:35→21:18)
[2017-03-03] MEDS: LISINOPRIL 10 MG TABLET PO SCH (08:35)
[2017-03-03] MEDS: DIVALPROEX SODIUM 500 MG ER TABLET PO SCH ×2 (08:35→21:18)
[2017-03-03 17:54] VITALS: BP 111/74
[2017-03-04 01:17] VITALS: BP 134/83
[2017-03-04] MEDS: HALOPERIDOL 5 MG TABLET PO PRN (03:57)
[2017-03-04] MEDS: MetFORMIN HCL 500 MG TABLET PO SCH ×2 (07:07→16:50)
[2017-03-04] MEDS: DIVALPROEX SODIUM 500 MG ER TABLET PO SCH ×2 (08:45→20:41)
[2017-03-04] MEDS: LISINOPRIL 10 MG TABLET PO SCH (08:45)
[2017-03-04] MEDS: RisperiDONE 3 MG TABLET PO SCH ×2 (08:45→20:41)
[2017-03-04 09:17] VITALS: BP 140/80
[2017-03-04 18:28] VITALS: BP 100/62
[2017-03-04 18:29] VITALS: BP 110/78
[2017-03-05 04:19] VITALS: BP 103/68
[2017-03-05] MEDS: MetFORMIN HCL 500 MG TABLET PO SCH ×2 (06:56→17:08)
[2017-03-05 09:21] VITALS: BP 119/72
[2017-03-05] MEDS: RisperiDONE 3 MG TABLET PO SCH ×2 (09:51→20:41)
[2017-03-05] MEDS: LISINOPRIL 10 MG TABLET PO SCH (09:51)
[2017-03-05] MEDS: DIVALPROEX SODIUM 500 MG ER TABLET PO SCH ×2 (09:51→20:41)
[2017-03-05 18:16] VITALS: BP 124/70
[2017-03-06 04:08] VITALS: BP 113/63
[2017-03-06] MEDS: MetFORMIN HCL 500 MG TABLET PO SCH ×2 (07:01→16:58)
[2017-03-06 08:00] VITALS: BP 121/77
[2017-03-06] MEDS: LISINOPRIL 10 MG TABLET PO SCH (09:00)
[2017-03-06] MEDS: RisperiDONE 3 MG TABLET PO SCH ×2 (09:01→20:02)
[2017-03-06] MEDS: DIVALPROEX SODIUM 500 MG ER TABLET PO SCH ×2 (09:01→20:02)
[2017-03-06 18:30] VITALS: BP 119/64
[2017-03-07 06:19] VITALS: BP 112/72
[2017-03-07] MEDS: MetFORMIN HCL 500 MG TABLET PO SCH ×2 (06:59→17:44)
[2017-03-07] MEDS: LISINOPRIL 10 MG TABLET PO SCH (09:04)
[2017-03-07] MEDS: DIVALPROEX SODIUM 500 MG ER TABLET PO SCH ×2 (09:04→20:31)
[2017-03-07] MEDS: RisperiDONE 3 MG TABLET PO SCH ×2 (09:04→20:31)
[2017-03-07 10:29] VITALS: BP 139/76
[2017-03-07 17:21] VITALS: BP 128/70
[2017-03-08] MEDS: HALOPERIDOL 5 MG TABLET PO PRN (00:42)
[2017-03-08 02:54] VITALS: BP 126/76
[2017-03-08] MEDS: MetFORMIN HCL 500 MG TABLET PO SCH ×2 (06:42→16:30)
[2017-03-08] MEDS: RisperiDONE 3 MG TABLET PO SCH ×2 (09:23→20:15)
[2017-03-08] MEDS: LISINOPRIL 10 MG TABLET PO SCH (09:23)
[2017-03-08 10:32] VITALS: BP 122/71
[2017-03-08] MEDS: DIVALPROEX SODIUM 500 MG ER TABLET PO SCH ×2 (14:07→16:30)
[2017-03-08 18:37] VITALS: BP 110/56
[2017-03-09 06:16] VITALS: BP 115/66
[2017-03-09] MEDS: MetFORMIN HCL 500 MG TABLET PO SCH ×2 (07:07→17:24)
[2017-03-09] MEDS: LISINOPRIL 10 MG TABLET PO SCH (09:13)
[2017-03-09] MEDS: RisperiDONE 3 MG TABLET PO SCH ×2 (09:13→20:56)
[2017-03-09] MEDS: DIVALPROEX SODIUM 500 MG ER TABLET PO SCH ×3 (09:13→17:24)
[2017-03-09 10:42] VITALS: BP 145/82
[2017-03-09 21:49] VITALS: BP 128/77
[2017-03-10 04:14] VITALS: BP 126/78
[2017-03-10] MEDS: MetFORMIN HCL 500 MG TABLET PO SCH (07:02)
[2017-03-10 08:07] VITALS: BP 138/71
[2017-03-10] MEDS: RisperiDONE 3 MG TABLET PO SCH (09:35)
[2017-03-10] MEDS: DIVALPROEX SODIUM 500 MG ER TABLET PO SCH ×3 (09:35→12:35)
[2017-03-10] MEDS: LISINOPRIL 10 MG TABLET PO SCH (09:35)
== END 2017-03-10 11:00 | disposition home or self-care (01) | DRG 885 ==
LOC: EMS 17:56 → 3EI 21:51
PROVIDERS: ADMIT Psychiatry & Neurology Child & Adolescent Psychiatry; ATTEND Psychiatry & Neurology Child & Adolescent Psychiatry
DX: F25.1 Schizoaffective disorder, depressive type (principal); F79 Unspecified intellectual disabilities; E11.9 Type 2 diabetes mellitus without complications; B95.61 Methicillin susceptible Staphylococcus aureus infection as the cause of diseases classified elsewhere; E03.9 Hypothyroidism, unspecified; F41.9 Anxiety disorder, unspecified; F42.9 Obsessive-compulsive disorder, unspecified; I10 Essential (primary) hypertension; R62.50 Unspecified lack of expected normal physiological development in childhood; R45.87 Impulsiveness; Z82.49 Family history of ischemic heart disease and other diseases of the circulatory system; Z83.3 Family history of diabetes mellitus; Z59.0 Homelessness; Z63.9 Problem related to primary support group, unspecified; Q90.9 Down syndrome, unspecified; Q65.89 Other specified congenital deformities of hip
CPT/HCPCS: 82962; 84439; 84443; 87070; 87081; 87205; 99285; G0480